=== PATIENT | female | born 1995 | race Caucasian/White ===

== ENCOUNTER → 2016-11-08 | Outpatient (CLI) | payer BC ==
[2016-11-11 12:24] LABS: CHLAMYDIA TRACH RNA*** NOT DETECTED (NOT DETECTED); GC (NEIS GONORRHOEAE)RNA** NOT DETECTED (NOT DETECTED)
== END | disposition home or self-care (01) ==
LOC: C.LABSPEC 11:16
PROVIDERS: ATTEND Obstetrics & Gynecology
DX: Z01.419 Encounter for gynecological examination (general) (routine) without abnormal findings (principal)

== ENCOUNTER → 2016-11-08 | Outpatient (CLI) | payer BC | END | disposition home or self-care (01) | LOC: C.PAPS 11:40 | PROVIDERS: ATTEND Obstetrics & Gynecology | DX: Z01.419 Encounter for gynecological examination (general) (routine) without abnormal findings (principal) ==

== ENCOUNTER → 2017-10-23 | Outpatient (CLI) | payer BC ==
--- NOTE | 2017-10-23 12:18 | DIAGNOSTIC IMAGING REPORT ---
EXAMINATION: RENAL ULTRASOUND CLINICAL HISTORY: N39.0 Recurrent UTI (urinary tract infection)[id number] COMPARISON STUDY: None FINDINGS: The right kidney measures 12.4 cm. The left kidney measures 10.3 cm. There is no evidence of hydronephrosis. There are no renal masses. There is scattered echogenic foci within the right kidney. These could represent small calculi. No bladder abnormalities are visualized. Bilateral ureteral jets were visualized. IMPRESSION : 1. Equivocal small right renal calculi 2. No renal masses identified 3. No evidence of hydronephrosis. Electronically signed by: Darryn Gunn M.D. 10/23/2017 12:16 PM Dictated Date/Time: 10/23/2017 12:11 PM
== END | disposition home or self-care (01) ==
LOC: C.ULTR 11:15
PROVIDERS: ATTEND Urology
DX: N39.0 Urinary tract infection, site not specified (principal)

== ENCOUNTER → 2017-12-25 | Outpatient (CLI) | payer OTHER | LOC: C.PAPS 13:18 | PROVIDERS: ATTEND Physician Assistant | DX: Z12.4 Encounter for screening for malignant neoplasm of cervix (principal) ==

== ENCOUNTER → 2017-12-25 | Outpatient (CLI) | payer OTHER | LOC: C.LABSPEC 13:10 | PROVIDERS: ATTEND Physician Assistant | DX: Z12.4 Encounter for screening for malignant neoplasm of cervix (principal) ==